=== PATIENT | female | born 1995 | race Caucasian/White ===

== ENCOUNTER 2017-07-12 16:50 | Emergency (ER) | payer MEDICAID ==
[2017-07-12] MEDS ORDERED: ONDANSETRON HCL/PF 2 MG/ML VIAL IV ONE ×2 (17:10→18:45)
[2017-07-12] MEDS ORDERED: MORPHINE SULFATE 4 MG/ML SYRG IV ONE (17:10)
[2017-07-12] MEDS ORDERED: NORMAL SALINE 1,000 ML IV ONE (17:10)
[2017-07-12] MEDS ORDERED: ONDANSETRON HCL/PF 2 MG/ML VIAL ONE ×2 (17:29→18:46)
[2017-07-12] MEDS ORDERED: MORPHINE SULFATE 4 MG/ML SYRG ONE (17:29)
[2017-07-12 17:31] LABS: Hematocrit 43.5 % (37.0-47.0); Hemoglobin 15.7 gm/dL (12.5-16.0); Mean Cell Volume 89.9 fl (78-100); Mean Corpuscular Hemoglobin 32.4 pg (27-31); Mean Corpuscular Hgb Conc 36.1 g/dl (32-36); Neutrophil # 5.9 K/mm3 (1.3-6.0); Neutrophil % 66.3 % (42-75.0); Platelet Count 303 K/mm3 (150-450); Red Blood Count 4.84 M/mm3 (4.2-5.4); Red Cell Distribution Width 11.9 % (11.5-14.0); White Blood Count 8.8 K/mm3 (4.0-10.5)
[2017-07-12 17:32] LABS: Urine Bilirubin 1 mg/dl (NEGATIVE); Urine Blood Negative /ul (NEGATIVE); Urine Ketone Large mg/dL (NEGATIVE); Urine Nitrite Negative (NEGATIVE); Urine Protein Negative (NEGATIVE); Urine Urobilinogen Normal (NORMAL)
[2017-07-12 17:44] LABS: Anion Gap 16.1 mmol/L (6.8-13.8); BUN/Creatinine Ratio 12.9 (9.0-21.6); Bilirubin, Total 0.6 mg/dL (0.0-1.1); Ca. Corrected For Albumin 8.6 mg/dL (8.4-10.2); Calcium * 8.9 mg/dL (7.9-10.9); Carbon Dioxide 24.5 mmol/L (24-32.6); Potassium 3.6 mmol/L (3.4-4.6); Total Protein 8.3 gm/dL (6.2-8.2); Urine Appearance Clear; Urine Bacteria TRACE; Urine Color Dark Yellow; Urine Mucus Few - 1+; Urine RBC None Seen /hpf (0-5); Urine WBC None Seen /hpf (0-5)
--- NOTE | 2017-07-12 19:53 | ERNOTE ---
Abdominal HPI - General Chief Complaint: Abdominal Pain Time Seen by Provider: 07/12/17 16:57 Source: patient Exam Limitations: no limitations - Immun/Allergies/Home Medications Immunizatons: IMMUNIZATION HX Immunizations Up to Date Yes History of Influenza Vaccine Yes Hx Pneumococcal Vaccination No Allergies/Adverse Reactions: Allergies cefaclor Allergy (Verified 12/08/15 00:15) Home Medications: HOME MEDICATIONS Levothyroxine Sodium [Synthroid] 50 mcg PO DAILY 12/08/15 [Last Taken Unknown] Dicyclomine HCl [Bentyl] 10 mg PO TID PRN #30 capsule 07/12/17 [Last Taken Unknown] Ondansetron [Zofran Odt] 4 mg PO Q6H PRN #20 tab 07/12/17 [Last Taken Unknown] - History of Present Illness Narrative: Patient presents with right lower quadrant abdominal pain onset was yesterday and is getting progressively worse. Patient was seen in our urgent care and was sent upstairs because of possible impending appendicitis. She rates the pain as moderate in intensity and sharp in nature. Timing: constant, getting worse Quality: moderate Activities at Onset: none Associated Symptoms: Present: nausea Prior Abdominal Problems: Present: other - Celiac disease Review of Systems - Review of Systems Constitutional: Present: See HPI EYE: Present: no symptoms reported ENT: Present: no symptoms reported Respiratory: Present: no symptoms reported Cardiology: Present: no symptoms reported Gastrointestinal/Abdominal: Present: nausea, abdominal pain Genitourinary: Present: no symptoms reported Musculoskeletal: Present: no symptoms reported Skin: Present: no symptoms reported Neurological: Present: no symptoms reported Endocrine: Present: no symptoms reported Hematologic/Lymphatic: Present: no symptoms reported Psych: Present: no symptoms reported - Patient's Past Medical History Patient History - Medical: Hypothyroidism, Other - celiac disease Patient History - Cardiac/Respiratory: No pertinent hx Patient History - Cancer: No Hx of Cancer Patient History - Surgical Procedures: EGD, Orthopedic Patient History - Other: None LMP (females 10-50): 3 weeks LMP (Calendar): 11/27/15 - Social History Living Situations: home Abuse History: No History of abuse Psych History: No pertinent hx Smoking Status: Former smoker Have you smoked in the past 12 months: No Do you dip or chew tobacco: No Patient requests Smoking Cessation Consult: No Initiate information on Smoking Cessation: No Alcohol Use: none Drug Use: none - Immunizations Immunizations Up to Date: Yes Hx Pneumococcal Vaccination: No History of Influenza Vaccine: Yes Physical Exam - Physical Exam General Appearance: Present: wd/wn, alert, moderate distress Head Exam: Present: normal inspection, no evidence of injury Eye Exam: Normal inspection: bilateral, PERRL: bilateral Ears, Nose, Throat: Present: normal ENT inspection, H, normal pharynx Neck: Present: normal inspection, nontender Respiratory: Present: no respiratory distress, normal breath sounds, no accessory muscle use, chest nontender, lungs clear Cardiovascular/Chest: Present: regular rate, rhythm, no murmur, normal peripheral pulses Gastrointestinal/Abdominal: Present: normal bowel sounds, nondistended, soft, tenderness, guarding, rebound, McBurney sign Rectal Exam: Present: deferred Back Exam: Present: normal inspection, normal range of motion Extremity Exam: Present: normal inspection, non-tender, no edema, normal range of motion Neurological Exam: Present: alert, oriented, normal mood/affect Skin Exam: Present: normal color, warm/dry Lymphatic Exam: Present: no adenopathy ED Progress - Results and Orders Patient's Lab Results:: I have reviewed the patient's lab results. - Vital Signs Patient's Vital Signs:: I have reviewed the patient's vital signs. Vital Signs: Vital Signs 07/12/17 07/12/17 16:58 18:42 Temperature 37.1 C 37.7 C H Pulse Rate 117 H 95 Respiratory 17 16 Rate Blood Pressure 129/80 113/75 O2 Sat by Pulse 96 97 Oximetry - CT/Ultrasound CT/Ultrasound Narrative: CT of the abdomen/pelvis results were reviewed by me - Progress/Reassessment Chief Complaint: Abdominal Pain Plan - Plan Plan: I suspect the patient is having an exacerbation of her celiac disease although certainly gastroenteritis is entertained. Patient will be started on pain medicine the caveat stay away from Edy wheat and gluten products and she is follow-up with her family physician within one week. Departure - Departure Clinical Impression: Celiac disease, Gastroenteritis Disposition: Home self-care Condition: Good Instructions: Viral Gastroenteritis, Adult, [id number], Celiac Disease Referrals: Medina Quezada MD [Primary Care Provider] - Prescriptions: Dicyclomine HCl [Bentyl] 10 mg PO TID PRN #30 capsule PRN Reason: Moderate Pain Ondansetron [Zofran Odt] 4 mg PO Q6H PRN #20 tab PRN Reason: Nausea And Vomiting
[2017-07-12 20:15] VITALS: BP 114/73
== END 2017-07-12 20:13 | disposition home or self-care (01) ==
LOC: ER 16:50
DX: K90.0 Celiac disease (principal); K52.9 Noninfective gastroenteritis and colitis, unspecified
CPT/HCPCS: 36415; 74177; 80053; 81001; 83690; 84703; 85025; 96374; 96375; 99284; J2405